=== PATIENT | male | born 1965 | race Hispanic/Latino ===

== ENCOUNTER → 2021-05-12 | Outpatient (CLI) | payer OTHER | END | disposition home or self-care (01) | LOC: RAH 14:47 | PROVIDERS: ATTEND Family Medicine | DX: Z02.71 Encounter for disability determination (principal); I50.9 Heart failure, unspecified; M25.561 Pain in right knee; R07.9 Chest pain, unspecified | CPT/HCPCS: 71046; 73562 ==